=== PATIENT | male | born 1985 | race Caucasian/White ===

== ENCOUNTER 2018-03-30 12:45 | Emergency (ER) ==
[2018-03-30 12:47] VITALS: BP 143/84; TEMP 98.1; BMI 27.3
[2018-03-30] MEDS ORDERED: ZOFRAN 4 MG/2 ML IVP STA (12:53)
[2018-03-30] MEDS ORDERED: SODIUM CHLORIDE 1,000 ML IV STA ×4 (12:53→16:06)
--- NOTE | 2018-03-30 13:21 | CT ---
EXAM: CT abdomen pelvis without intravenous contrast 03/30/2018. Sagittal and coronal reformatted i mages obtained HISTORY: Vomiting COMPARISON: 07/17/2014 FINDINGS: The liver, gallbladder, adrenal glands and kidneys show no acute abnormality. No urinary obstruction. The spleen, pancreas, appendix and urinary bladder show no acute abnormality. No free air or free fluid. Bilateral L5 pars defects appear chronic. IMPRESSION: 1. No urinary or bowel obstruction and normal appendix. 2. Chronic bilateral L5 pars defects. 3. No acute inflammatory process identified within the abdomen or pelvis within the limitation of a noncontrast enhanced examination.
--- NOTE | 2018-03-30 15:53 | ED.PDOC ---
General ED Provider: Dr. CASTILLO MONROE-ER Chief Complaint: Nausea/Vomiting Stated Complaint: im vomiting Time Seen by Physician: 12:50 Mode of Arrival: Walk-In Information Source: Patient Exam Limitations: No limitations Primary Care Provider: BERNIE ALAN Nursing and Triage Documentation Reviewed and Agree: Yes Does patient meet sepsis criteria?: No System Inflammatory Response Syndrome: Not Applicable Sepsis Protocol: For patient's 13 years and over: Temp is 96.8 and below OR 101 and greater Pulse >90 BPM Resp >20/minute Acutely Altered Mental Status Are patient's symptoms suggestive of a new infection, such as: -Pneumonia -Skin, Soft Tissue -Endocarditis -UTI -Bone, Joint Infection -Implantable Device -Acute Abdominal Infection -Wound Infection -Meningitis -Blood Stream Catheter Infection -Unknown GI Complaint Exam - Vomiting/Diarrhea Complaint/Exam Onset/Duration: 2 days Symptoms Are: Still present Initial Severity: Mild Current Severity: Mild Character of Vomiting: Reports: Non-bilious Aggravating: Reports: None Alleviating: Reports: None Associated Signs and Symptoms: Reports: Fever. Denies: Dizziness, Light- headedness, Melena, Hematemesis, Abdominal pain, Cramping Kussmaul Respirations Present: No Differential Diagnoses: Cholecystitis, Cholelithiasis, Dehydration, Viral Gastroenteritis, Bacterial Gastroenteritis Review of Systems - Review Of Systems Constitutional: Reports: No symptoms Eyes: Reports: No symptoms Ears, Nose, Mouth, Throat: Reports: No symptoms Respiratory: Reports: No symptoms Cardiac: Reports: No symptoms GI: Reports: Nausea, Vomiting. Denies: Abdominal pain, Diarrhea, Rectal bleeding : Reports: No symptoms Musculoskeletal: Reports: No symptoms Skin: Reports: No symptoms Neurological: Reports: No symptoms Endocrine: Reports: No symptoms Hematologic/Lymphatic: Reports: No symptoms All Other Systems: Reviewed and Negative Past Medical History - Past Medical History Previously Healthy: Yes Endocrine: Reports: Unknown Cardiovascular: Reports: Unknown Respiratory: Reports: Unknown Hematological: Reports: Unknown Gastrointestinal: Reports: Unknown Genitourinary: Reports: Unknown Neuro/Psych: Reports: Unknown Musculoskeletal: Reports: Unknown Cancer: Reports: Unknown - Surgical History General Surgical History: Reports: Unknown - Family History Family History: Reports: Unknown - Social History Smoking Status: Current every day smoker, Light tobacco smoker Hx Substance Use: No Alcohol Screening: None Lives: With family Physical Exam - Physical Exam Appearance: Well-appearing, No pain distress, Well-nourished Eyes: WAYNE, EOMI, Conjunctiva clear ENT: Ears normal, Nose normal, Oropharynx normal Neck: Supple Respiratory: Airway patent, Breath sounds clear, Breath sounds equal, Respirations nonlabored Cardiovascular: RRR GI/: Soft, Nontender, No masses, Bowel sounds normal, No Organomegaly Musculoskeletal: Normal strength, ROM intact, No edema, No calf tenderness Skin: Warm, Dry, Normal color Neurological: Sensation intact, Motor intact, Reflexes intact, Cranial nerves intact, Alert, Oriented Psychiatric: Affect appropriate, Mood appropriate Interpretation - Radiology Interpretation Radiology Interpretation By: Radiologist Radiology Results: Negative Exam Interpreted: CT Scan Re-Evaluation - Re-Evaluation Time of Re-Evaluation: 18:21 Status: Improved (no nausea--hiccups resolved) Vital Signs Stable: Yes Pain Level: 0 Appearance: NAD Lungs: Clear Skin: Warm and Dry Neuro: Alert and Oriented X3 CV: RRR Critical Care Note - Critical Care Note Total Time (mins): 0 Course - Course Hematology/Chemistry: 03/30/18 13:10 03/30/18 13:10 Orders, Labs, Meds: Lab Review 03/30/18 03/30/18 03/30/18 13:10 13:10 16:52 WBC 14.96 H RBC 5.56 Hgb 16.5 Hct 48.7 MCV 87.6 MCH 29.7 MCHC 33.9 RDW Coeff of Alfredo 12.4 Plt Count 266 Immature Gran % (Auto) 0.4 Neut % (Auto) 78.5 Lymph % (Auto) 13.0 Cavalier % (Auto) 7.7 Eos % (Auto) 0.1 Baso % (Auto) 0.3 Immature Gran # (Auto) 0.1 Neut # (Auto) 11.7 H Lymph # (Auto) 1.9 Cavalier # (Auto) 1.2 Eos # (Auto) 0.0 Baso # (Auto) 0.1 ESR 1 Sodium 139 Potassium 3.1 L Chloride 100 Carbon Dioxide 28 Anion Gap 14.1 BUN 9 Creatinine 0.97 Estimated GFR (MDRD) 89.00 BUN/Creatinine Ratio 9.27 Glucose 122 H Calcium 9.6 Total Bilirubin 0.8 AST 14 L ALT 16 Alkaline Phosphatase 71 Total Protein 7.5 Albumin 4.2 Globulin 3.3 Albumin/Globulin Ratio 1.27 Amylase 18 L Lipase 5 L Urine Color Yellow Urine Clarity Clear Urine pH 6.0 Ur Specific Ruth >=1.030 Urine Protein 1+ Urine Glucose (UA) Negative Urine Ketones 2+ Urine Blood Trace-intact Urine Nitrite Negative Urine Bilirubin 1+ Urine Urobilinogen 1.0 Ur Leukocyte Esterase Negative Urine Microscopic RBC 2-5 Urine Microscopic WBC 2-5 Ur Squamous Epith Cells Not present Urine Bacteria 1+ Urine Mucus 1+ Orders Category Date Time Status Bladder Scan [ED BLADDER SCAN] .ONCE EMERGENCY 03/30/18 16:02 Active ED IV/MEDIPORT/POWERPORT .ONCE EMERGENCY 03/30/18 12:53 Active AMYLASE Stat LAB 03/30/18 13:10 Completed CBC W/ AUTO DIFF Stat LAB 03/30/18 13:10 Completed COMPREHENSIVE METABOLIC PANEL Stat LAB 03/30/18 13:10 Completed ESR Stat LAB 03/30/18 13:10 Completed LIPASE Stat LAB 03/30/18 13:10 Completed MOLECULAR GROUP A STREP Stat LAB 03/30/18 13:03 Completed URINALYSIS C & S IF INDICATED Stat LAB 03/30/18 16:52 Completed URINE CULTURE Stat LAB 03/30/18 16:52 Received 0.9 % Sodium Chloride [Saline Flush] MEDS 03/30/18 12:53 Ordered 1 syr IVF PRN PRN Chlorpromazine HCl [Thorazine] MEDS 03/30/18 16:03 Discontinued 50 mg IM ONCE STA Ondansetron HCl/Pf [Zofran 4 mg/2 ml] MEDS 03/30/18 12:53 Discontinued 8 mg IVP ONCE STA Pantoprazole Sodium [Protonix IV] MEDS 03/30/18 16:59 Discontinued 40 mg IVP ONCE STA Potassium Chloride [Potassium Chl 10% Oral Shahnaz] MEDS 03/30/18 18:12 Discontinued 40 meq PO ONCE STA Sodium Chloride 0.9% [Sodium Chloride] 1,000 ml MEDS 03/30/18 13:21 Discontinued IV BOLUS Sodium Chloride 0.9% [Sodium Chloride] 1,000 ml MEDS 03/30/18 13:55 Discontinued IV BOLUS Sodium Chloride 0.9% [Sodium Chloride] 1,000 ml MEDS 03/30/18 16:[address] ABDOMEN/PELVIS WO CONTRAST Stat RADS 03/30/18 12:53 Completed Medications Generic Name Dose Route Start Last Admin Trade Name Freq PRN Reason Stop Dose Admin Sodium Chloride 1 syr 03/30/18 12:53 Saline Flush IVF PRN PRN To flush IV Discontinued Medications Generic Name Dose Route Start Last Admin Trade Name Sushma PRN Reason Stop Dose Admin Chlorpromazine HCl 50 mg 03/30/18 16:03 03/30/18 17:26 Thorazine IM 03/30/18 16:04 50 mg ONCE STA Administration Sodium Chloride 1,000 mls @ 1,200 mls/hr 03/30/18 13:21 03/30/18 13:22 Sodium Chloride IV 03/30/18 14:10 1,200 mls/hr BOLUS STA Administration Sodium Chloride 1,000 mls @ 1,000 mls/hr 03/30/18 13:55 03/30/18 14:18 Sodium Chloride IV 03/30/18 14:54 1,000 mls/hr BOLUS STA Administration Sodium Chloride 1,000 mls @ 1,000 mls/hr 03/30/18 16:06 03/30/18 16:15 Sodium Chloride IV 03/30/18 17:05 1,000 mls/hr BOLUS STA Administration Ondansetron HCl 8 mg 03/30/18 12:53 03/30/18 13:22 Zofran 4 Mg/2 Ml IVP 03/30/18 12:54 8 mg ONCE STA Administration Pantoprazole Sodium 40 mg 03/30/18 16:59 03/30/18 17:23 Protonix Iv IVP 03/30/18 17:00 40 mg ONCE STA Administration Potassium Chloride 40 meq 03/30/18 18:12 Potassium Chl 10% Oral Shahnaz PO 03/30/18 18:13 ONCE STA Vital Signs: Temp Pulse Resp BP Pulse Ox 03/30/18 12:45 98.1 F 59 L 18 143/84 H 98 Departure - Departure Time of Disposition: 18:21 Disposition: HOME SELF-CARE Discharge Problem: Hypokalemia Vomiting Qualifiers: Vomiting type: unspecified Vomiting Intractability: unspecified Nausea presence : unspecified Qualified Code(s): R11.10 - Vomiting, unspecified Instructions: Hypokalemia (ED) Condition: Good Pt referred to PMD for follow-up: Yes IPMP verified?: No Additional Instructions: f/u with dr alan to recheck potassium this week Allergies/Adverse Reactions: Allergies No Known Allergies Allergy (Verified 03/30/18 12:48) Home Medications: Ambulatory Orders 1 [No Reported Medications] 06/11/13 Disposition Discussed With: Patient, Family
[2018-03-30] MEDS ORDERED: THORAZINE IM STA (16:03)
[2018-03-30] MEDS ORDERED: PROTONIX IV IVP STA (16:59)
[2018-03-30] MEDS ORDERED: POTASSIUM CHL 10% ORAL SOL PO STA (18:12)
== END 2018-03-30 18:30 | disposition home or self-care (01) ==
LOC: ED 12:45
DX: E87.6 Hypokalemia (principal); R11.2 Nausea with vomiting, unspecified; F17.210 Nicotine dependence, cigarettes, uncomplicated
CPT/HCPCS: 36415; 80053; 81001; 82150; 83690; 85025; 85651; 87086; 87651; 96361; 96372; 96374; 96375; 99283

== ENCOUNTER 2018-05-13 14:02 | Emergency (ER) ==
[2018-05-13 14:02] VITALS: BMI 27.3
[2018-05-13 14:06] VITALS: BP 161/99; TEMP 98.3
--- NOTE | 2018-05-13 15:06 | ED.PDOC ---
General ED Provider: Dr. CASTILLO COFFEY Chief Complaint: Finger Laceration Stated Complaint: The patient stated he was using a table saw and went to flick off excess wood and accidently cut right 2nd finger Time Seen by Physician: 14:45 Mode of Arrival: Walk-In Information Source: Patient Exam Limitations: No limitations Primary Care Provider: BERNIE PEREIRA Nursing and Triage Documentation Reviewed and Agree: Yes Does patient meet sepsis criteria?: No System Inflammatory Response Syndrome: Not Applicable Sepsis Protocol: For patient's 13 years and over: Temp is 96.8 and below OR 101 and greater Pulse >90 BPM Resp >20/minute Acutely Altered Mental Status Are patient's symptoms suggestive of a new infection, such as: -Pneumonia -Skin, Soft Tissue -Endocarditis -UTI -Bone, Joint Infection -Implantable Device -Acute Abdominal Infection -Wound Infection -Meningitis -Blood Stream Catheter Infection -Unknown Trauma/Injury Complaint Exam - Trauma Complaint/Exam Location of Pain or Injury: Reports: RUE (INDEX FINGER) Mechanism of Injury: Reports: Incised Onset/Duration: 2 hr before arrival Symptoms Are: Still present Timing of Treatment: Immediate Initial Severity: Moderate Current Severity: Moderate Character: Reports: Sharp Aggravating: Reports: Movement Alleviating: Reports: None Associated Signs and Symptoms: Reports: Significant blood loss Related History: Reports: Occupational injury. Denies: Similar episode, Alcohol abuse, Drug abuse, Alleged assault, Anticoagulants Penetrating Injury Risk Factors: Reports: Grinding (sharp table saw) Skin Findings: Present: Laceration Differential Diagnoses: Laceration Review of Systems - Review Of Systems Constitutional: Reports: No symptoms Eyes: Reports: No symptoms Ears, Nose, Mouth, Throat: Reports: No symptoms Respiratory: Reports: No symptoms Cardiac: Reports: No symptoms GI: Reports: No symptoms : Reports: No symptoms Musculoskeletal: Reports: No symptoms Skin: Reports: No symptoms Neurological: Reports: No symptoms Endocrine: Reports: No symptoms Hematologic/Lymphatic: Reports: No symptoms All Other Systems: Reviewed and Negative Past Medical History - Past Medical History Previously Healthy: Yes Endocrine: Reports: Unknown Cardiovascular: Reports: Unknown Respiratory: Reports: Unknown Hematological: Reports: Unknown Gastrointestinal: Reports: Unknown Genitourinary: Reports: Unknown Neuro/Psych: Reports: Unknown Musculoskeletal: Reports: Unknown Cancer: Reports: Unknown - Surgical History General Surgical History: Reports: Unknown - Family History Family History: Reports: Unknown - Social History Smoking Status: Current every day smoker, Light tobacco smoker Hx Substance Use: No Alcohol Screening: None - Immunizations Tetanus Shot up to Date: No (unknown) Physical Exam - Physical Exam Appearance: Well-appearing, No pain distress, Well-nourished Eyes: WAYNE, EOMI, Conjunctiva clear ENT: Ears normal, Nose normal, Oropharynx normal Respiratory: Airway patent, Breath sounds clear, Breath sounds equal, Respirations nonlabored Cardiovascular: RRR, Pulses normal, No rub, No murmur GI/: Soft, Nontender, No masses, Bowel sounds normal, No Organomegaly Musculoskeletal: Normal strength (injury to rt index finger), ROM intact, No edema, No calf tenderness Skin: Warm, Dry, Normal color Neurological: Sensation intact, Motor intact, Reflexes intact, Cranial nerves intact, Alert, Oriented Psychiatric: Affect appropriate, Mood appropriate Procedures - Laceration/Wound Repair Rt INDEX FINGER Wound Description: Linear, Nail-avulsed Wound Length (cm): 1.5 Wound Width: 1-2mm Wound Depth: 1-2 mm Wound Explored: Clean Wound Irrigated: Yes Wound Prep: Saline, Hibiclens, Betadine, Scrub Anesthesia: Lidocaine, Digital nerve block Wound Debrided: Minimal Wound Margins: Revised Wound Repaired With: Sutures Suture Size and Type: 4-0 nylon Number of Sutures: 5 Layer Closure?: No Sterile Dressing Applied?: Yes (cigarette roller guaze) Splint Applied?: Yes Critical Care Note - Critical Care Note Total Time (mins): 0 Course - Course Orders, Labs, Meds: Orders Category Date Time Status Diphth,Pertuss(Acell),Tet Vac [Boostrix] MEDS 05/13/18 15:09 Discontinued 0.5 ml IM .ONCE ONE Hydrocodone Bit/Acetaminophen [[place] 10-325] MEDS 05/13/18 15:09 Discontinued 1 tab PO ONCE STA Lidocaine HCl/Pf [Lidocaine HCl 1% Sdv] MEDS 05/13/18 16:57 Discontinued 5 ml .ROUTE .STK-MED ONE FINGER(S) RIGHT MIN 2V Stat RADS 05/13/18 15:07 Completed Medications Discontinued Medications Generic Name Dose Route Start Last Admin Trade Name Freq PRN Reason Stop Dose Admin Hydrocodone Bitart/Acetaminophen 1 tab 05/13/18 15:09 05/13/18 15:40 [place] 10-325 PO 05/13/18 15:10 1 tab ONCE STA Administration Diphtheria/Pertussis/Tetanus Vacc 0.5 ml 05/13/18 15:09 05/13/18 15:41 Boostrix IM 05/13/18 15:10 0.5 ml .ONCE ONE Administration Vital Signs: Temp Pulse Resp BP Pulse Ox 05/13/18 14:02 98.3 F 86 16 161/99 H 96 Departure - Departure Time of Disposition: 17:15 Disposition: HOME SELF-CARE Discharge Problem: Laceration of index finger with damage to nail Instructions: Care For Your Stitches (ED), Laceration (ED) Condition: Good Pt referred to PMD for follow-up: Yes (See PCP in 48 hrs/Return to ER As needed) IPMP verified?: No Additional Instructions: Follow up at Clinic in 2-4days for recheck Options of referral to hand surgeon discussed/see PCP for referral as needed Take antibiotic and pain meds as directed Prescriptions: Hydrocodone/Acetaminophen [[place] 10-325 Tablet] 1 each PO Q6HR PRN #20 tablet PRN Reason: Pain unrelieved by Motrin Cephalexin [Keflex] 500 mg PO BID #14 capsule Allergies/Adverse Reactions: Allergies No Known Allergies Allergy (Verified 05/13/18 14:06) Home Medications: Ambulatory Orders Cephalexin [Keflex] 500 mg PO BID #14 capsule 05/13/18 Hydrocodone/Acetaminophen [Athol 10-325 Tablet] 1 each PO Q6HR PRN #20 tablet Disposition Discussed With: Patient, Family
[2018-05-13] MEDS ORDERED: NORCO 10-325 PO STA (15:09)
[2018-05-13] MEDS ORDERED: BOOSTRIX IM ONE (15:09)
--- NOTE | 2018-05-13 15:34 | DI ---
EXAM: Second digit of the right hand three views HISTORY: Laceration tip of the index finger. FINDINGS / IMPRESSION: There is a soft tissue defect of the distal finger consistent with the patien t's history of laceration. No fracture or joint dislocation. No soft tissue radiopaque foreign bodi es are seen.
[2018-05-13] MEDS ORDERED: LIDOCAINE HCL 1% SDV ONE (16:57)
== END 2018-05-13 17:38 | disposition home or self-care (01) ==
LOC: ED 14:02
DX: S61.310A Laceration without foreign body of right index finger with damage to nail, initial encounter (principal); W45.8XXA Other foreign body or object entering through skin, initial encounter; F17.210 Nicotine dependence, cigarettes, uncomplicated
CPT/HCPCS: 90471; 90715; 99283